=== PATIENT | female | born 1945 | race Caucasian/White ===

== ENCOUNTER 2017-05-14 12:06 | Emergency (ER) | payer MEDICARE ==
[2017-05-14 12:43] LABS: BILIRUBIN,URINE NEGATIVE (NEG); CLARITY,URINE CLEAR; COLOR,URINE ORANGE; GLUCOSE,URINE NEGATIVE (NEG); NITRITE,URINE POSITIVE (NEG); PROTEIN,URINE NEGATIVE (NEG-TRACE)
[2017-05-14 13:02] LABS: WBC,URINE OCC /HPF (0-4)
[2017-05-14 13:03] LABS: BACTERIA,URINE 0 /HPF (0-FEW); SQUAMOUS EPITHELIAL CELL,UR FEW /LPF
[2017-05-14] MEDS: FAMOTIDINE 20 MG/2 ML VIAL IVP ×2 (13:18)
[2017-05-14] MEDS: IV NORMAL SALINE 1000ML BAG 1,000 ML IV ×2 (13:18)
[2017-05-14 13:29] LABS: BASO % 0 % (0-3); EOS % 1 % (0-3); HEMATOCRIT 39.4 % (36.0-47.0); HEMOGLOBIN 13.4 g/dL (12.0-15.5); LYMPH # 0.8 x10^3/uL (1.0-4.8); LYMPH % 9 % (24-48); MEAN CORPUSCULAR HEMOGLOBIN 29 pg (25-35); MEAN CORPUSCULAR HGB CONC 34 g/dL (31-37); MEAN CORPUSCULAR VOLUME 85 fL (79-100); MONO # 0.4 x10^3/uL (0.0-1.1); MONO % 4 % (0-9); NEUT % 85 % (31-73); PLATELET COUNT 211 x10^3/uL (140-400); RED BLOOD COUNT 4.66 x10^6/uL (3.50-5.40); RED CELL DISTRIBUTION WIDTH 14.3 % (11.5-14.5); WHITE BLOOD COUNT 8.2 x10^3/uL (4.0-11.0)
[2017-05-14 13:30] LABS: ADD MAN DIFF? YES
[2017-05-14 13:35] LABS: ANION GAP 7 (6-14); BLOOD UREA NITROGEN 29 mg/dL (7-20); BUN/CREATININE RATIO 22 (6-20); CALCIUM 9.6 mg/dL (8.5-10.1); CARBON DIOXIDE 31 mmol/L (21-32); CHLORIDE 102 mmol/L (98-107); CREATININE 1.3 mg/dL (0.6-1.0); GFR 40.5; GLUCOSE 113 mg/dL (70-99); POTASSIUM 3.6 mmol/L (3.5-5.1); SODIUM 140 mmol/L (136-145)
[2017-05-14 13:47] LABS: ALBUMIN 3.9 g/dL (3.4-5.0); ALBUMIN/GLOBULIN RATIO 1.3 (1.0-1.7); ALK PHOS 77 U/L (46-116); ALT (SGPT) 37 U/L (14-59); AST (SGOT) 27 U/L (15-37); LIPASE 177 U/L (73-393); TOTAL BILIRUBIN 1.3 mg/dL (0.2-1.0); TOTAL PROTEIN 6.9 g/dL (6.4-8.2)
[2017-05-14 14:30] LABS: % BANDS 13 % (0-9); % EOS 1 % (0-5); % LYMPHS 8 % (24-48); % MONOS 2 % (0-10); % SEGS 76 % (35-66)
[2017-05-14 14:31] LABS: PLT ESTIMATE ADEQUATE (ADEQUATE)
== END 2017-05-14 16:02 | disposition home or self-care (01) ==
LOC: ER 12:06
DX: N39.0 Urinary tract infection, site not specified (principal); K57.92 Diverticulitis of intestine, part unspecified, without perforation or abscess without bleeding; K64.9 Unspecified hemorrhoids; Z88.0 Allergy status to penicillin; Z88.2 Allergy status to sulfonamides; Z88.8 Allergy status to other drugs, medicaments and biological substances; Z88.6 Allergy status to analgesic agent; Z88.1 Allergy status to other antibiotic agents; Z91.041 Radiographic dye allergy status
CPT/HCPCS: 36415; 74176; 80053; 81001; 83690; 85007; 85025; 87086; 96360; 99285-25; J7030

== ENCOUNTER → 2017-11-08 | Outpatient (CLI) | payer MEDICARE ==
[2017-05-14 15:21] VITALS: BP 146/76
[~2017-11-08] MED LIST: ASPI-630 PO; GADOBUTROL 10 MMOL/10 ML VIAL IV ONE; HYDR-2766 PO; HYDR10FO3 RC; LABE200T4 PO; METR500T PO; NITR100C62 PO; OMEP20TA63 PO; RANI300C PO; SIMV10TA3 PO; TRIA1CAP3 PO
--- NOTE | 2017-11-08 14:28 | KCIC ---
MRI of the lumbar spine without and with contrast 11/08/2017 CLINICAL HISTORY: Chronic low back pain which radiates down the right leg. Breast cancer. TECHNIQUE: Unenhanced T1-weighted, T2-weighted and inversion recovery sagittal and T1-weighted and T2-weighted axial images of the lumbar spine were obtained. After the intravenous administration of 10 cc of Gadavist, enhanced T1-weighted sagittal and axial images of the lumbar spine were obtained. FINDINGS: Very mild S-shaped curvature of the thoracolumbar spine is seen. Mild anterolisthesis of L4 in relation L5 is noted. Degenerative signal changes are seen involving all of the disks of the lumbar spine. Loss of height of the L3-4, L4-5 and L5-S1 discs is noted. Degenerative signal changes are seen within the marrow surrounding these discs. A 1.5 cm perineural cyst is seen within the sacral spinal canal. The conus medullaris is normal morphology, position, and signal characteristics. Several rounded high signal intensity lesions are seen scattered throughout both kidneys on the T2-weighted images. These measure 3 mm to 3.4 cm in size. They likely represent cysts. No area of abnormal contrast enhancement is seen. At the L1-2 disc space is a mild generalized disc bulge. Degenerative changes are seen involving the facet joints bilaterally. These findings do not result in significant central spinal canal or neural foraminal stenosis. At the L2-3 disc space there is a mild generalized disc bulge. Degenerative changes are seen involving the facet joints bilaterally. There is mild ligamentum flavum hypertrophy bilaterally. These findings when combined do not result in significant central spinal canal or neural foraminal stenosis. At the L3-4 disc space there is a mild to moderate generalized disc bulge. Superimposed on this disc bulge is a central/right paracentral focal disc protrusion. This measures 3.5 mm in AP diameter. Degenerative changes are seen involving the facet joints bilaterally. There is moderate ligamentum flavum hypertrophy bilaterally. These findings when combined result in moderate central spinal canal stenosis. Mild bilateral neural foraminal stenosis is seen. At the L4-5 disc space there is a moderate generalized disc bulge. Degenerative changes are seen involving the facet joints bilaterally. There is moderate ligamentum flavum hypertrophy bilaterally. These findings when combined result in moderate central spinal canal stenosis. Mild left neural foraminal stenosis is seen. The right neural foramen is patent. At the L5-S1 disc space there is a moderate generalized disc bulge. Degenerative changes are seen involving the facet joints bilaterally. There is moderate ligamentum flavum hypertrophy bilaterally. These findings when combined result in mild central spinal canal stenosis. Mild left neural foraminal stenosis is seen. The right neural foramen is patent. IMPRESSION: The changes of degenerative disc disease are seen throughout the lumbar spine. These findings result in moderate central spinal canal stenosis at L3-4 and L4-5 and mild central spinal canal stenosis at L5-S1. Mild bilateral neural foraminal stenosis is seen at L3-4. Mild left neural foraminal stenosis is seen at L4-5 and L5-S1. Electronically signed by: Grey Amaral MD (11/08/2017 2:24 PM) [facility]
== END | disposition home or self-care (01) ==
LOC: KCIC MRI 10:35
PROVIDERS: ATTEND Physical Medicine & Rehabilitation
DX: M51.36 Other intervertebral disc degeneration, lumbar region (principal); M48.07 Spinal stenosis, lumbosacral region; M17.12 Unilateral primary osteoarthritis, left knee; Z85.3 Personal history of malignant neoplasm of breast
CPT/HCPCS: 72158; 82565; A9585